=== PATIENT | male | born 1935 | race Hispanic/Latino ===

== ENCOUNTER → 2018-10-14 | Outpatient (CLI) | payer MEDICARE ==
[~2018-10-14] MED LIST: ALEN35TA31 PO; ASPI-555 PO; CHOL200012 PO; CLOP75TA14 PO; GABA-529 PO; INSU100I3 SQ; INSU3INS3 SQ; LOSA25TA41 PO
== END | disposition home or self-care (01) ==
LOC: RAH 09:12
PROVIDERS: ATTEND Internal Medicine Gastroenterology
DX: K21.9 Gastro-esophageal reflux disease without esophagitis (principal); R19.4 Change in bowel habit
CPT/HCPCS: 74270

== ENCOUNTER 2021-09-16 10:03 | Inpatient (IN) | payer MEDICARE ==
[~2021-09-16] VITALS: Ht 162.6 cm; Wt 82.7 kg
[~2021-09-16 10:03] MED LIST changes: -ALEN35TA31 PO; +ALEN35TA53 PO; -ASPI-555 PO; +ASPI-556 PO; +BISA5TAB12 PO; -INSU100I3 SQ; -INSU3INS3 SQ; -LOSA25TA41 PO; +LOSA50TA64 PO; +SIMV10TA97 PO
[2021-09-16 10:29] LABS: APPEARANCE,URINE Clear (CLEAR); BILIRUBIN,URINE Negative (NEGATIVE); COLOR,URINE Yellow (YELLOW); GLUCOSE, URINE (UA) Negative (NEGATIVE); KETONES,URINE Negative (NEGATIVE); LEUKOCYTE ESTERASE ,URINE Negative (NEGATIVE); NITRATE,URINE Negative (NEGATIVE); OCCULT BLOOD,URINE Negative (NEGATIVE); PROTEIN,URINE 300 mg/dL (NEGATIVE); UROBILINOGEN,URINE 0.2 mg/dL (0.2-1.0)
[2021-09-16 10:31] LABS: BASOPHILS % (AUTO) 0.6 % (0.0-5.0); EOSINOPHILS % (AUTO) 1.2 % (0.0-8.0); HEMATOCRIT 27.8 % (42-54); LYMPHOCYTES % (AUTO) 16.4 % (21.0-51.0); MEAN CORPUSCULAR HEMOGLOBIN 29.8 pg (27.0-33.0); MEAN CORPUSCULAR HGB CONC 30.9 g/dL (32.0-36.0); MEAN CORPUSCULAR VOLUME 96.2 fL (79-99); NEUTROPHILS % (AUTO) 75.3 % (40.0-77.0); PLATELET COUNT (AUTO) 177 K/uL (130-400); RED BLOOD CELL COUNT(AUTO) 2.89 MIL/uL (4.50-6.20); RED CELL DISTRIBUTION WIDTH 15.6 % (11.0-15.5); WHITE BLOOD COUNT (AUTO) 10.1 K/uL (4.8-10.8)
[2021-09-16 10:39] LABS: CREATININE 3.9 mg/dL (0.5-1.5)
[2021-09-16 10:47] LABS: BACTERIA,URINE Few /HPF (None Seen); RBC,URINE 0-1 /HPF (0-1); WBC,URINE 0-1 /HPF (0-1)
[2021-09-16 10:50] LABS: ALBUMIN 3.7 g/dL (3.5-5.0); BILIRUBIN,TOTAL 0.4 mg/dL (0.2-1.0); TOTAL PROTEIN, SERUM 7.2 g/dL (6.0-8.3)
[2021-09-16 11:00] LABS: B-TYPE NATRIURETIC PEPTIDE 976 pg/mL (0-100)
[2021-09-16] MEDS ORDERED: FUROSEMIDE 20MG VIAL IV SCH (11:30)
[2021-09-16] MEDS ORDERED: FOLI1TAB61 PO (12:58)
[2021-09-16] MEDS ORDERED: SODI650T PO (12:59)
[2021-09-16] MEDS ORDERED: METO-408 PO (13:00)
[2021-09-16] MEDS ORDERED: Vitamin B Complex/Vit C/Folic Acid PO SCH (13:00)
[2021-09-16] MEDS ORDERED: MECO10005 PO (13:02)
[2021-09-16] MEDS ORDERED: HYDR-4153 PO (13:04)
[2021-09-16 13:06] LABS: CREATININE,URINE RANDOM 64 mg/dL (30-135); SODIUM,URINE RANDOM 51 mmol/l (40-220)
[2021-09-16 13:12] LABS: HEMOGLOBIN A1C 5.7 % (4.0-6.0)
[2021-09-16 13:40] LABS: MAGNESIUM 1.9 mg/dL (1.80-2.40); PHOSPHORUS 3.3 mg/dL (2.5-4.9); URIC ACID 7.9 mg/dL (2.6-7.2)
[2021-09-16] MEDS ORDERED: SODIUM BICARBONATE 650 MG TAB PO SCH (14:00)
[2021-09-16] MEDS ORDERED: BUMETANIDE 1MG/4ML VIAL IVP SCH (16:00)
[2021-09-16] MEDS: FUROSEMIDE 40MG VIAL IV SCH (16:24)
[2021-09-16] MEDS: HEPARIN 5,000 UNIT VIAL SQ SCH (18:47)
[2021-09-16] MEDS: HYDRALAZINE 25MG TABLET PO SCH (20:28)
[2021-09-17 00:41] VITALS: BP 134/57
[2021-09-17] MEDS: FUROSEMIDE 40MG VIAL IV SCH (04:54)
[2021-09-17] MEDS: HEPARIN 5,000 UNIT VIAL SQ SCH ×3 (04:55→20:59)
[2021-09-17 05:38] VITALS: BP 109/53
[2021-09-17 06:48] LABS: BASOPHILS % (AUTO) 0.6 % (0.0-5.0); EOSINOPHILS % (AUTO) 2.4 % (0.0-8.0); HEMATOCRIT 25.3 % (42-54); LYMPHOCYTES % (AUTO) 15.2 % (21.0-51.0); MEAN CORPUSCULAR HEMOGLOBIN 28.4 pg (27.0-33.0); MEAN CORPUSCULAR VOLUME 94.4 fL (79-99); MONOCYTES % (AUTO) 7.8 % (3.0-13.0); NEUTROPHILS % (AUTO) 73.7 % (40.0-77.0); PLATELET COUNT (AUTO) 145 K/uL (130-400); RED BLOOD CELL COUNT(AUTO) 2.68 MIL/uL (4.50-6.20); RED CELL DISTRIBUTION WIDTH 15.5 % (11.0-15.5); WHITE BLOOD COUNT (AUTO) 7.2 K/uL (4.8-10.8)
[2021-09-17 07:06] LABS: ALBUMIN 3.1 g/dL (3.5-5.0); BILIRUBIN,TOTAL 0.3 mg/dL (0.2-1.0); CREATININE 4.1 mg/dL (0.5-1.5); MAGNESIUM 1.8 mg/dL (1.80-2.40); POTASSIUM 4.4 mmol/L (3.5-5.1); TOTAL PROTEIN, SERUM 6.2 g/dL (6.0-8.3)
[2021-09-17 07:10] VITALS: BP 135/69
[2021-09-17] MEDS ORDERED: Vitamin B Complex/Vit C/Folic Acid PO SCH (09:00)
[2021-09-17] MEDS: CHOLECALCIFEROL 2000 UNIT PO SCH (09:00)
[2021-09-17 11:10] VITALS: BP 132/62
[2021-09-17 11:53] LABS: % IRON SATURATION 20.1 % (30-44)
[2021-09-17] MEDS: GABAPENTIN 100 MG CAPSULE PO SCH (12:22)
[2021-09-17] MEDS: Vitamin B Complex/Vit C/Folic Acid PO SCH (12:23)
[2021-09-17] MEDS: SODIUM BICARBONATE 650 MG TAB PO SCH (12:23)
[2021-09-17] MEDS: METOPROLOL SUCCINATE 50 MG TAB.SR.24H PO SCH (12:24)
[2021-09-17] MEDS: CYANOCOBALAMIN (VITAMIN B-12) 1,000 MCG TABLET PO SCH (12:24)
[2021-09-17] MEDS: HYDRALAZINE 25MG TABLET PO SCH ×2 (12:26→20:59)
[2021-09-17 15:10] VITALS: BP 155/69
[2021-09-17 16:04] LABS: HEMATOCRIT 26.9 % (42-54)
[2021-09-17 20:00] VITALS: BP 137/58
[2021-09-17] MEDS: EPOETIN ALFA-EPBX (NON-ESRD) 10,000 UNIT/ML VIAL SQ SCH (20:59)
[2021-09-18] VITALS: BP 111/52
[2021-09-18 04:00] VITALS: BP 141/67
[2021-09-18 04:52] LABS: HEMATOCRIT 23.9 % (42-54); MEAN CORPUSCULAR HEMOGLOBIN 28.3 pg (27.0-33.0); MEAN CORPUSCULAR HGB CONC 30.1 g/dL (32.0-36.0); MEAN CORPUSCULAR VOLUME 94.1 fL (79-99); RED BLOOD CELL COUNT(AUTO) 2.54 MIL/uL (4.50-6.20); RED CELL DISTRIBUTION WIDTH 15.3 % (11.0-15.5)
[2021-09-18 04:59] LABS: CREATININE 4.4 mg/dL (0.5-1.5)
[2021-09-18] MEDS: FUROSEMIDE 40MG VIAL IV SCH ×2 (05:00→17:34)
[2021-09-18 05:05] LABS: INR 1.15 (0.85-1.15); PROTHROMBIN TIME 12.4 SEC (9.6-11.6)
[2021-09-18 05:06] LABS: PARTIAL THROMBOPLASTIN TIME 27.9 SEC (26.3-35.5)
[2021-09-18 07:20] VITALS: BP 151/71
[2021-09-18] MEDS ORDERED: COMPOUND IV MISC 1 EACH IVSOLN MISC PRN (08:30)
[2021-09-18] MEDS: CHOLECALCIFEROL 2000 UNIT PO SCH (09:00)
[2021-09-18] MEDS: Vitamin B Complex/Vit C/Folic Acid PO SCH (10:50)
[2021-09-18] MEDS: GABAPENTIN 100 MG CAPSULE PO SCH (10:50)
[2021-09-18] MEDS: SODIUM BICARBONATE 650 MG TAB PO SCH (10:51)
[2021-09-18] MEDS: CYANOCOBALAMIN (VITAMIN B-12) 1,000 MCG TABLET PO SCH (10:51)
[2021-09-18] MEDS: HYDRALAZINE 25MG TABLET PO SCH ×2 (10:51→22:19)
[2021-09-18] MEDS: METOPROLOL SUCCINATE 50 MG TAB.SR.24H PO SCH (10:51)
[2021-09-18 11:30] VITALS: BP 154/51
[2021-09-18 15:15] VITALS: BP 150/64
[2021-09-18] MEDS: HEPARIN 5,000 UNIT VIAL SQ SCH (18:16)
[2021-09-18] MEDS: IRON SUCROSE COMPLEX 300 MG in 0.9%NACL 50ML 50 ML IV SCH (18:17)
[2021-09-18 19:44] VITALS: BP 136/68
[2021-09-19] VITALS (7 sets, daily range): BP systolic 95–171; BP diastolic 43–72
[2021-09-19 04:40] LABS: HEMATOCRIT 23.2 % (42-54); MEAN CORPUSCULAR HEMOGLOBIN 28.5 pg (27.0-33.0); MEAN CORPUSCULAR VOLUME 91.7 fL (79-99); RED BLOOD CELL COUNT(AUTO) 2.53 MIL/uL (4.50-6.20); RED CELL DISTRIBUTION WIDTH 15.3 % (11.0-15.5); WHITE BLOOD COUNT (AUTO) 7.5 K/uL (4.8-10.8)
[2021-09-19 04:41] LABS: ALBUMIN 2.8 g/dL (3.5-5.0); CREATININE 4.8 mg/dL (0.5-1.5); POTASSIUM 3.7 mmol/L (3.5-5.1)
[2021-09-19] MEDS: FUROSEMIDE 40MG VIAL IV SCH (06:02)
[2021-09-19] MEDS: HEPARIN 5,000 UNIT VIAL SQ SCH (06:04)
[2021-09-19] MEDS: CHOLECALCIFEROL 2000 UNIT PO SCH (09:00)
[2021-09-19] MEDS: CYANOCOBALAMIN (VITAMIN B-12) 1,000 MCG TABLET PO SCH (11:14)
[2021-09-19] MEDS: Vitamin B Complex/Vit C/Folic Acid PO SCH (11:14)
[2021-09-19] MEDS: HYDRALAZINE 25MG TABLET PO SCH ×2 (11:14→20:06)
[2021-09-19] MEDS: SODIUM BICARBONATE 650 MG TAB PO SCH (11:14)
[2021-09-19] MEDS: GABAPENTIN 100 MG CAPSULE PO SCH (11:15)
[2021-09-19] MEDS: APIXABAN 2.5 MG TABLET PO SCH ×2 (11:15→20:06)
[2021-09-19] MEDS: IRON SUCROSE COMPLEX 300 MG in 0.9%NACL 50ML 50 ML IV SCH (11:16)
[2021-09-19] MEDS: FUROSEMIDE 40 MG TABLET PO SCH (18:15)
[2021-09-19] MEDS: EPOETIN ALFA-EPBX (NON-ESRD) 10,000 UNIT/ML VIAL SQ SCH (20:06)
[2021-09-20] VITALS (7 sets, daily range): BP systolic 100–172; BP diastolic 46–68
[2021-09-20 04:30] LABS: HEMATOCRIT 24.2 % (42-54); MEAN CORPUSCULAR HEMOGLOBIN 28.7 pg (27.0-33.0); MEAN CORPUSCULAR HGB CONC 30.6 g/dL (32.0-36.0); MEAN CORPUSCULAR VOLUME 93.8 fL (79-99); RED BLOOD CELL COUNT(AUTO) 2.58 MIL/uL (4.50-6.20); RED CELL DISTRIBUTION WIDTH 15.5 % (11.0-15.5); WHITE BLOOD COUNT (AUTO) 8.2 K/uL (4.8-10.8)
[2021-09-20 05:08] LABS: CREATININE 5.5 mg/dL (0.5-1.5)
[2021-09-20] MEDS: FUROSEMIDE 40 MG TABLET PO SCH (05:30)
[2021-09-20] MEDS: CHOLECALCIFEROL 2000 UNIT PO SCH (09:00)
[2021-09-20] MEDS: GABAPENTIN 100 MG CAPSULE PO SCH (10:42)
[2021-09-20] MEDS: APIXABAN 2.5 MG TABLET PO SCH ×2 (10:42→21:06)
[2021-09-20] MEDS: Vitamin B Complex/Vit C/Folic Acid PO SCH (10:42)
[2021-09-20] MEDS: IRON SUCROSE COMPLEX 300 MG in 0.9%NACL 50ML 50 ML IV SCH (10:42)
[2021-09-20] MEDS: CYANOCOBALAMIN (VITAMIN B-12) 1,000 MCG TABLET PO SCH (10:42)
[2021-09-20] MEDS: SODIUM BICARBONATE 650 MG TAB PO SCH (10:42)
[2021-09-20] MEDS: HYDRALAZINE 25MG TABLET PO SCH ×2 (10:43→21:06)
[2021-09-21 03:50] VITALS: BP 100/47
[2021-09-21 04:40] LABS: HEMATOCRIT 22.7 % (42-54); MEAN CORPUSCULAR HEMOGLOBIN 28.7 pg (27.0-33.0); MEAN CORPUSCULAR HGB CONC 30.8 g/dL (32.0-36.0); RED BLOOD CELL COUNT(AUTO) 2.44 MIL/uL (4.50-6.20); RED CELL DISTRIBUTION WIDTH 15.8 % (11.0-15.5); WHITE BLOOD COUNT (AUTO) 8.3 K/uL (4.8-10.8)
[2021-09-21 04:54] LABS: POTASSIUM 3.4 mmol/L (3.5-5.1)
[2021-09-21 07:30] VITALS: BP 126/52
[2021-09-21] MEDS: CHOLECALCIFEROL 2000 UNIT PO SCH (09:00)
[2021-09-21 09:32] LABS: HEMATOCRIT 24.2 % (42-54)
[2021-09-21] MEDS: CYANOCOBALAMIN (VITAMIN B-12) 1,000 MCG TABLET PO SCH (10:54)
[2021-09-21] MEDS: GABAPENTIN 100 MG CAPSULE PO SCH (10:54)
[2021-09-21] MEDS: Vitamin B Complex/Vit C/Folic Acid PO SCH (10:54)
[2021-09-21] MEDS: SODIUM BICARBONATE 650 MG TAB PO SCH (10:54)
[2021-09-21] MEDS: HYDRALAZINE 25MG TABLET PO SCH ×2 (10:55→20:37)
[2021-09-21] MEDS: APIXABAN 2.5 MG TABLET PO SCH ×2 (10:55→20:31)
[2021-09-21] MEDS: IRON SUCROSE COMPLEX 300 MG in 0.9%NACL 50ML 50 ML IV SCH (10:56)
[2021-09-21 11:15] VITALS: BP 145/56
[2021-09-21 15:25] VITALS: BP 142/61
[2021-09-21 20:00] VITALS: BP 141/55
[2021-09-22] VITALS: BP 100/44
[2021-09-22 04:00] VITALS: BP 96/42
[2021-09-22 06:59] LABS: BASOPHILS % (AUTO) 0.5 % (0.0-5.0); EOSINOPHILS % (AUTO) 1.7 % (0.0-8.0); HEMATOCRIT 25.1 % (42-54); LYMPHOCYTES % (AUTO) 18.8 % (21.0-51.0); MEAN CORPUSCULAR HGB CONC 29.9 g/dL (32.0-36.0); MEAN CORPUSCULAR VOLUME 96.9 fL (79-99); MONOCYTES % (AUTO) 10.1 % (3.0-13.0); PLATELET COUNT (AUTO) 156 K/uL (130-400); RED BLOOD CELL COUNT(AUTO) 2.59 MIL/uL (4.50-6.20); RED CELL DISTRIBUTION WIDTH 15.9 % (11.0-15.5); WHITE BLOOD COUNT (AUTO) 7.6 K/uL (4.8-10.8)
[2021-09-22 07:18] LABS: CREATININE 5.2 mg/dL (0.5-1.5); POTASSIUM 3.9 mmol/L (3.5-5.1)
[2021-09-22 08:00] VITALS: BP 112/44
[2021-09-22] MEDS: CHOLECALCIFEROL 2000 UNIT PO SCH (09:00)
[2021-09-22] MEDS: Vitamin B Complex/Vit C/Folic Acid PO SCH (10:03)
[2021-09-22] MEDS: GABAPENTIN 100 MG CAPSULE PO SCH (10:03)
[2021-09-22] MEDS: SODIUM BICARBONATE 650 MG TAB PO SCH (10:03)
[2021-09-22] MEDS: CYANOCOBALAMIN (VITAMIN B-12) 1,000 MCG TABLET PO SCH (10:03)
[2021-09-22] MEDS: HYDRALAZINE 25MG TABLET PO SCH (10:04)
[2021-09-22 11:59] VITALS: BP 117/63
== END 2021-09-22 15:00 | disposition home or self-care (01) | DRG 291 ==
LOC: EDH 10:03 → EDHIP 12:01 → UNDOADMOB 12:01 → OBSVTOIN 12:01 → INTOOBSV 12:01 → EDHIP 12:45 → OBSVTOIN 12:45 → 4DH 09-17 00:20
PROVIDERS: ADMIT Internal Medicine; ATTEND Internal Medicine
DX: I13.0 Hypertensive heart and chronic kidney disease with heart failure and stage 1 through stage 4 chronic kidney disease, or unspecified chronic kidney disease (principal); J96.01 Acute respiratory failure with hypoxia; E43 Unspecified severe protein-calorie malnutrition; I50.33 Acute on chronic diastolic (congestive) heart failure; N17.9 Acute kidney failure, unspecified; I45.2 Bifascicular block; N18.4 Chronic kidney disease, stage 4 (severe); E11.22 Type 2 diabetes mellitus with diabetic chronic kidney disease; D50.9 Iron deficiency anemia, unspecified; R00.1 Bradycardia, unspecified; D63.8 Anemia in other chronic diseases classified elsewhere; E78.5 Hyperlipidemia, unspecified; E87.6 Hypokalemia; H54.8 Legal blindness, as defined in USA; I44.0 Atrioventricular block, first degree; I48.91 Unspecified atrial fibrillation; Z20.822 Contact with and (suspected) exposure to COVID-19; R79.89 Other specified abnormal findings of blood chemistry; Z83.3 Family history of diabetes mellitus; Z82.3 Family history of stroke; Z82.49 Family history of ischemic heart disease and other diseases of the circulatory system; Z82.0 Family history of epilepsy and other diseases of the nervous system; Z90.49 Acquired absence of other specified parts of digestive tract; Z79.899 Other long term (current) drug therapy; Z79.82 Long term (current) use of aspirin; Z68.31 Body mass index [BMI] 31.0-31.9, adult
CPT/HCPCS: 36415; 71045; 72170; 76770; 80048; 80053; 81001; 82040; 82270; 82550; 82570; 82728; 82948; 83036; 83540; 83550; 83735; 83874; 83880; 84100; 84145; 84300; 84443; 84484; 84540; 84550; 85014; 85018; 85025; 85027; 85610; 85651; 85730; 86140; 86850; 86900; 86901; 87635; 93005; 93306; 93356; 93970; 97039; 99291; C9803; G0378; J1644; J1756; J1940

== ENCOUNTER 2021-11-04 10:46 | Inpatient (IN) | payer MEDICARE ==
[~2021-11-04] VITALS: Ht 162.6 cm; Wt 68.9 kg
[~2021-11-04 10:46] MED LIST changes: -ALEN35TA53 PO; -ASPI-556 PO; -BISA5TAB12 PO; -CLOP75TA14 PO; +FOLI1TAB61 PO; -LOSA50TA64 PO; +MECO10005 PO; -SIMV10TA97 PO
[2021-11-04 11:33] LABS: BASOPHILS % (AUTO) 0.2 % (0.0-5.0); EOSINOPHILS % (AUTO) 0.2 % (0.0-8.0); HEMATOCRIT 32.8 % (42-54); LYMPHOCYTES % (AUTO) 7.3 % (21.0-51.0); MEAN CORPUSCULAR HEMOGLOBIN 30.5 pg (27.0-33.0); MEAN CORPUSCULAR HGB CONC 34.1 g/dL (32.0-36.0); MEAN CORPUSCULAR VOLUME 89.4 fL (79-99); MONOCYTES % (AUTO) 2.4 % (3.0-13.0); NEUTROPHILS % (AUTO) 89.4 % (40.0-77.0); PLATELET COUNT (AUTO) 183 K/uL (130-400); RED BLOOD CELL COUNT(AUTO) 3.67 MIL/uL (4.50-6.20); RED CELL DISTRIBUTION WIDTH 14.7 % (11.0-15.5); WHITE BLOOD COUNT (AUTO) 11.2 K/uL (4.8-10.8)
[2021-11-04 11:46] LABS: CREATININE 7.2 mg/dL (0.5-1.5); POTASSIUM 3.9 mmol/L (3.5-5.1)
[2021-11-04 11:50] LABS: ALBUMIN 3.2 g/dL (3.5-5.0); BILIRUBIN,TOTAL 0.3 mg/dL (0.2-1.0); PHOSPHORUS 8.5 mg/dL (2.5-4.9); TOTAL PROTEIN, SERUM 7.1 g/dL (6.0-8.3)
[2021-11-04 12:07] LABS: INR 1.12 (0.85-1.15); PROTHROMBIN TIME 11.5 SEC (9.6-11.6)
[2021-11-04] MEDS ORDERED: PANTOPRAZOLE 40 MG/VIAL IVP ONE (12:30)
[2021-11-04] MEDS: PANTOPRAZOLE 40 MG/VIAL IVP SCH (12:30)
[2021-11-04 12:36] LABS: ERYTHROCYTE SEDIMENTATION RATE 60 MM/HR (0-20)
[2021-11-04 12:48] LABS: HEMOGLOBIN A1C 5.8 % (4.0-6.0)
[2021-11-04 15:54] LABS: APPEARANCE,URINE Clear (CLEAR); BILIRUBIN,URINE Negative (NEGATIVE); COLOR,URINE Yellow (YELLOW); GLUCOSE, URINE (UA) TRACE mg/dL (NEGATIVE); KETONES,URINE Negative (NEGATIVE); LEUKOCYTE ESTERASE ,URINE Negative (NEGATIVE); NITRATE,URINE Negative (NEGATIVE); OCCULT BLOOD,URINE Small (NEGATIVE); PROTEIN,URINE 300 mg/dL (NEGATIVE); UROBILINOGEN,URINE 0.2 mg/dL (0.2-1.0)
[2021-11-04 16:04] LABS: WBC,URINE 0-1 /HPF (0-1)
[2021-11-04 16:05] LABS: BACTERIA,URINE Few /HPF (None Seen); COARSE GRANULAR CASTS,URINE 0-2 /LPF (None Seen); SQUAMOUS EPITHELIAL CELL,UR Rare /HPF (0-2)
[2021-11-04 16:10] VITALS: BP 160/80
[2021-11-04] MEDS ORDERED: APIX2.5T PO (16:48)
[2021-11-04] MEDS ORDERED: SODI1POW18 PO (16:48)
[2021-11-04] MEDS ORDERED: FURO20TA4 PO (16:48)
[2021-11-04] MEDS ORDERED: LINA145C PO (16:48)
[2021-11-04] MEDS ORDERED: FERR-82 PO (16:48)
[2021-11-04] MEDS ORDERED: FOLI0.8T2 PO (16:48)
[2021-11-04] MEDS ORDERED: MECO10005 PO (16:48)
[2021-11-04] MEDS ORDERED: METO-391 PO (16:48)
[2021-11-04] MEDS ORDERED: CHOL200012 PO (16:48)
[2021-11-04 18:55] LABS: HEMATOCRIT 31.5 % (42-54)
[2021-11-04 19:06] LABS: ALBUMIN 3.2 g/dL (3.5-5.0)
[2021-11-04 19:30] LABS: % IRON SATURATION 70.3 % (30-44)
[2021-11-04 20:00] VITALS: BP 178/78
[2021-11-05] VITALS (25 sets, daily range): BP systolic 118–186; BP diastolic 57–89
[2021-11-05 04:12] LABS: ALBUMIN 2.9 g/dL (3.5-5.0); BILIRUBIN,TOTAL 0.3 mg/dL (0.2-1.0); CREATININE 6.8 mg/dL (0.5-1.5); PHOSPHORUS 8.3 mg/dL (2.5-4.9); TOTAL PROTEIN, SERUM 6.4 g/dL (6.0-8.3)
[2021-11-05 06:51] LABS: HEPATITIS B SURFACE ANTIGEN Non-Reactive (Negative)
[2021-11-05] MEDS ORDERED: FERROUS SULFATE 325 MG TABLET.DR PO SCH (09:00)
[2021-11-05] MEDS: CYANOCOBALAMIN (VITAMIN B-12) 1,000 MCG TABLET PO SCH (09:00)
[2021-11-05] MEDS: **HM**(Linaclotide (Linzess) 145 MCG) PO SCH (09:00)
[2021-11-05] MEDS ORDERED: FUROSEMIDE 20 MG TABLET PO SCH (09:00)
[2021-11-05] MEDS: Vitamin B Complex/Vit C/Folic Acid PO SCH (09:00)
[2021-11-05] MEDS ORDERED: SODIUM BICARBONATE 650 MG TAB PO SCH (09:00)
[2021-11-05] MEDS: CHOLECALCIFEROL 50 MCG PO SCH (09:00)
[2021-11-05] MEDS: PANTOPRAZOLE 40 MG/VIAL IVP SCH (09:27)
[2021-11-05] MEDS ORDERED: HEPARIN 1,000 UNIT VIAL ONE (13:35)
[2021-11-05] MEDS ORDERED: LIDOCAINE HCL 1% MDV 50ML VIAL ONE (13:36)
[2021-11-05] MEDS ORDERED: EPOETIN ALFA-EPBX (ESRD) 10,000 UNIT/ML VIAL SQ SCH (21:00)
[2021-11-05] MEDS: HEPARIN 5,000 UNIT VIAL IJ PRN (21:43)
[2021-11-05] MEDS ORDERED: KCL 20 MEQ ERTAB PO ONE ×2 (22:24→22:30)
[2021-11-06] VITALS (17 sets, daily range): BP systolic 97–151; BP diastolic 54–76
[2021-11-06 06:42] LABS: BASOPHILS % (AUTO) 0.2 % (0.0-5.0); EOSINOPHILS % (AUTO) 0.5 % (0.0-8.0); HEMATOCRIT 30.3 % (42-54); LYMPHOCYTES % (AUTO) 11.9 % (21.0-51.0); MEAN CORPUSCULAR HEMOGLOBIN 30.8 pg (27.0-33.0); MEAN CORPUSCULAR HGB CONC 35.6 g/dL (32.0-36.0); MEAN CORPUSCULAR VOLUME 86.3 fL (79-99); NEUTROPHILS % (AUTO) 81.9 % (40.0-77.0); PLATELET COUNT (AUTO) 157 K/uL (130-400); RED BLOOD CELL COUNT(AUTO) 3.51 MIL/uL (4.50-6.20); RED CELL DISTRIBUTION WIDTH 14.6 % (11.0-15.5); WHITE BLOOD COUNT (AUTO) 8.9 K/uL (4.8-10.8)
[2021-11-06 06:55] LABS: ALBUMIN 2.9 g/dL (3.5-5.0); BILIRUBIN,TOTAL 0.7 mg/dL (0.2-1.0); CREATININE 5.1 mg/dL (0.5-1.5); MAGNESIUM 1.9 mg/dL (1.80-2.40); POTASSIUM 3.6 mmol/L (3.5-5.1); TOTAL PROTEIN, SERUM 6.7 g/dL (6.0-8.3)
[2021-11-06] MEDS: CYANOCOBALAMIN (VITAMIN B-12) 1,000 MCG TABLET PO SCH (08:59)
[2021-11-06] MEDS: Vitamin B Complex/Vit C/Folic Acid PO SCH (08:59)
[2021-11-06] MEDS: PANTOPRAZOLE 40 MG/VIAL IVP SCH (08:59)
[2021-11-06] MEDS: **HM**(Linaclotide (Linzess) 145 MCG) PO SCH (09:01)
[2021-11-06] MEDS: CHOLECALCIFEROL 50 MCG PO SCH (09:01)
[2021-11-06] MEDS: HEPARIN 5,000 UNIT VIAL IJ PRN (13:42)
[2021-11-06] MEDS ORDERED: MIDODRINE HCL 5 MG TABLET PO PRN (19:00)
[2021-11-06] MEDS ORDERED: MIDODRINE HCL 5 MG TABLET PO SCH (19:00)
[2021-11-06] MEDS: APIXABAN 2.5 MG TABLET PO SCH (20:16)
[2021-11-07] VITALS (20 sets, daily range): BP systolic 106–155; BP diastolic 61–80
[2021-11-07] MEDS: CHOLECALCIFEROL 50 MCG PO SCH (09:00)
[2021-11-07] MEDS: **HM**(Linaclotide (Linzess) 145 MCG) PO SCH (09:00)
[2021-11-07] MEDS: CYANOCOBALAMIN (VITAMIN B-12) 1,000 MCG TABLET PO SCH (09:18)
[2021-11-07] MEDS: Vitamin B Complex/Vit C/Folic Acid PO SCH (09:18)
[2021-11-07] MEDS: APIXABAN 2.5 MG TABLET PO SCH (09:18)
[2021-11-07] MEDS: PANTOPRAZOLE 40 MG/VIAL IVP SCH (09:18)
[2021-11-07 14:45] LABS: CREATININE 1.8 mg/dL (0.5-1.5); POTASSIUM 3.2 mmol/L (3.5-5.1)
[2021-11-07 14:49] LABS: PHOSPHORUS 1.7 mg/dL (2.5-4.9)
[2021-11-07] MEDS: HEPARIN 5,000 UNIT VIAL IJ PRN (14:54)
== END 2021-11-07 18:15 | disposition home or self-care (01) | DRG 673 ==
LOC: EDH 10:46 → EDHIP 12:23 → 4CH 13:46
PROVIDERS: ADMIT Internal Medicine; ATTEND Internal Medicine
PROC: 0JH63XZ Insertion of Tunneled Vascular Access Device into Chest Subcutaneous Tissue and Fascia, Percutaneous Approach (ICD-10-PCS; principal; 2021-11-05)
PROC: 02H633Z Insertion of Infusion Device into Right Atrium, Percutaneous Approach (ICD-10-PCS; 2021-11-05)
PROC: B5181ZA Fluoroscopy of Superior Vena Cava using Low Osmolar Contrast, Guidance (ICD-10-PCS; 2021-11-05)
PROC: B548ZZA Ultrasonography of Superior Vena Cava, Guidance (ICD-10-PCS; 2021-11-05)
PROC: 5A1D70Z Performance of Urinary Filtration, Intermittent, Less than 6 Hours Per Day (ICD-10-PCS; 2021-11-05)
PROC: 5A1D70Z Performance of Urinary Filtration, Intermittent, Less than 6 Hours Per Day (ICD-10-PCS; 2021-11-06)
PROC: 5A1D70Z Performance of Urinary Filtration, Intermittent, Less than 6 Hours Per Day (ICD-10-PCS; 2021-11-07)
DX: I12.0 Hypertensive chronic kidney disease with stage 5 chronic kidney disease or end stage renal disease (principal); N18.6 End stage renal disease; I48.91 Unspecified atrial fibrillation; E78.5 Hyperlipidemia, unspecified; D64.9 Anemia, unspecified; Z20.822 Contact with and (suspected) exposure to COVID-19; Z83.3 Family history of diabetes mellitus; Z82.5 Family history of asthma and other chronic lower respiratory diseases; E11.319 Type 2 diabetes mellitus with unspecified diabetic retinopathy without macular edema; E11.51 Type 2 diabetes mellitus with diabetic peripheral angiopathy without gangrene; E83.39 Other disorders of phosphorus metabolism; E87.70 Fluid overload, unspecified; Z96.642 Presence of left artificial hip joint; E87.6 Hypokalemia; F03.90 Unspecified dementia, unspecified severity, without behavioral disturbance, psychotic disturbance, mood disturbance, and anxiety; I95.1 Orthostatic hypotension; Z82.3 Family history of stroke; Z82.49 Family history of ischemic heart disease and other diseases of the circulatory system; H54.8 Legal blindness, as defined in USA; Z79.01 Long term (current) use of anticoagulants; E11.22 Type 2 diabetes mellitus with diabetic chronic kidney disease; Z99.2 Dependence on renal dialysis; Z66 Do not resuscitate
CPT/HCPCS: 36415; 36558; 71045; 77001; 80048; 80053; 80061; 81001; 82040; 82565; 82728; 82948; 83036; 83540; 83550; 83735; 84100; 84132; 84145; 84443; 84520; 85014; 85018; 85025; 85610; 85651; 85730; 86701; 86704; 86706; 87340; 87390; 87635; 90935; 92610; 93005; C1750; C9113; G0378; J1644; J3490

== ENCOUNTER 2021-11-08 09:59 | Emergency (ER) | payer MEDICARE ==
[~2021-11-08] VITALS: Ht 162.6 cm; Wt 72.1 kg
[~2021-11-08 09:59] MED LIST changes: +APIX2.5T PO; +FERR-82 PO; +FOLI0.8T2 PO; +FURO20TA4 PO; +LINA145C PO; +METO-391 PO; +SODI1POW18 PO
[2021-11-08] MEDS ORDERED: 0.9% NACL 500ML IV.SOLN 500 ML IV ONE (10:47)
[2021-11-08 11:07] LABS: BASOPHILS % (AUTO) 0.2 % (0.0-5.0); EOSINOPHILS % (AUTO) 0.6 % (0.0-8.0); LYMPHOCYTES % (AUTO) 10.4 % (21.0-51.0); MEAN CORPUSCULAR HEMOGLOBIN 29.9 pg (27.0-33.0); MEAN CORPUSCULAR HGB CONC 33.7 g/dL (32.0-36.0); MEAN CORPUSCULAR VOLUME 88.8 fL (79-99); MONOCYTES % (AUTO) 7.6 % (3.0-13.0); NEUTROPHILS % (AUTO) 80.6 % (40.0-77.0); PLATELET COUNT (AUTO) 115 K/uL (130-400); RED BLOOD CELL COUNT(AUTO) 3.94 MIL/uL (4.50-6.20); RED CELL DISTRIBUTION WIDTH 14.3 % (11.0-15.5); WHITE BLOOD COUNT (AUTO) 10.2 K/uL (4.8-10.8)
[2021-11-08 11:16] LABS: CREATININE 4.8 mg/dL (0.5-1.5); POTASSIUM 3.4 mmol/L (3.5-5.1)
[2021-11-08 11:21] LABS: ALBUMIN 3.1 g/dL (3.5-5.0); BILIRUBIN,TOTAL 0.5 mg/dL (0.2-1.0); TOTAL PROTEIN, SERUM 6.9 g/dL (6.0-8.3)
[2021-11-08] MEDS ORDERED: 0.9% NACL 500ML IV.SOLN 500 ML IV SCH (13:30)
[2021-11-08 15:06] VITALS: BP 141/72
== END 2021-11-08 15:08 | disposition home or self-care (01) ==
LOC: EDH 09:59
DX: R42 Dizziness and giddiness (principal); E86.9 Volume depletion, unspecified; I12.0 Hypertensive chronic kidney disease with stage 5 chronic kidney disease or end stage renal disease; E11.22 Type 2 diabetes mellitus with diabetic chronic kidney disease; N18.6 End stage renal disease; D63.1 Anemia in chronic kidney disease; I48.91 Unspecified atrial fibrillation; Z99.2 Dependence on renal dialysis; Z90.89 Acquired absence of other organs; Z98.890 Other specified postprocedural states; Z79.899 Other long term (current) drug therapy; Z79.01 Long term (current) use of anticoagulants
CPT/HCPCS: 36415; 80053; 84484 ×2; 85025; 93005; 99284; J7040 ×2

== ENCOUNTER 2022-06-23 11:46 | Day surgery (SDC) | payer MEDICARE ==
[2022-06-18 09:05] LABS: CREATININE 4.8 mg/dL (0.5-1.5)
[2022-06-22 15:30] VITALS: BP 105/54
[~2022-06-23] VITALS: Ht 162.6 cm; Wt 76.2 kg
[~2022-06-23 11:46] MED LIST changes: -FERR-82 PO; -FOLI0.8T2 PO; -FOLI1TAB61 PO; -FURO20TA4 PO; -GABA-529 PO; -LINA145C PO; +POTASSIUM CHLORIDE PO; -SODI1POW18 PO
[2022-06-23 11:54] VITALS: BP 98/50
[2022-06-23 12:05] LABS: HEMATOCRIT 33.3 % (42-54); MEAN CORPUSCULAR HEMOGLOBIN 33.6 pg (27.0-33.0); MEAN CORPUSCULAR HGB CONC 32.4 g/dL (32.0-36.0); MEAN CORPUSCULAR VOLUME 103.7 fL (79-99); RED BLOOD CELL COUNT(AUTO) 3.21 MIL/uL (4.50-6.20); RED CELL DISTRIBUTION WIDTH 16.6 % (11.0-15.5)
[2022-06-23 12:14] LABS: CREATININE 5.4 mg/dL (0.5-1.5); POTASSIUM 4.6 mmol/L (3.5-5.1)
[2022-06-23] MEDS ORDERED: 0.9%NACL 1000ML 1,000 ML IV ONE (12:16)
[2022-06-23 12:18] LABS: INR 1.03 (0.85-1.15); PROTHROMBIN TIME 11.2 SEC (9.6-11.6)
[2022-06-23 12:19] LABS: PARTIAL THROMBOPLASTIN TIME 26.5 SEC (26.3-35.5)
[2022-06-23] MEDS ORDERED: LIDOCAINE HCL 1% 20 ML VIAL ONE (13:03)
[2022-06-23] MEDS ORDERED: IODIXANOL 320 MG/ML 100 ML VIAL ONE (13:03)
[2022-06-23] MEDS ORDERED: FENTANYL CITRATE PF 50 MCG/1 ML 2ML VIAL ONE (13:04)
[2022-06-23] MEDS ORDERED: MIDAZOLAM HCL 1 MG/ML 2ML VIAL ONE (13:04)
[2022-06-23 14:30] VITALS: BP 122/48
[2022-06-23 14:45] VITALS: BP 124/54
[2022-06-23 15:00] VITALS: BP 131/44
[2022-06-23 15:10] VITALS: BP 128/54
== END 2022-06-23 15:10 | disposition home or self-care (01) ==
LOC: DAH 11:46
PROVIDERS: ATTEND Student in an Organized Health Care Education/Training Program
DX: T82.590A Other mechanical complication of surgically created arteriovenous fistula, initial encounter (principal); E11.22 Type 2 diabetes mellitus with diabetic chronic kidney disease; I12.0 Hypertensive chronic kidney disease with stage 5 chronic kidney disease or end stage renal disease; N18.6 End stage renal disease; Z99.2 Dependence on renal dialysis; Z98.890 Other specified postprocedural states; Z90.49 Acquired absence of other specified parts of digestive tract; Z79.899 Other long term (current) drug therapy; Z79.4 Long term (current) use of insulin; Y83.8 Other surgical procedures as the cause of abnormal reaction of the patient, or of later complication, without mention of misadventure at the time of the procedure
CPT/HCPCS: 84520; 82565; 36415 ×2; 36901; 80048; 85027; 85610; 85730; 82948 ×2; C1894 ×2; A4663; J7030; J1644; Q9967; A4215; A4222; A4221; J2250; J3010

== ENCOUNTER 2022-12-24 05:52 | Day surgery (SDC) | payer MEDICARE ==
[2022-12-23 15:46] LABS: BASOPHILS % (AUTO) 0.6 % (0.0-5.0); EOSINOPHILS % (AUTO) 1.9 % (0.0-8.0); HEMATOCRIT 28.7 % (42-54); LYMPHOCYTES % (AUTO) 19.4 % (21.0-51.0); MEAN CORPUSCULAR HEMOGLOBIN 32.9 pg (27.0-33.0); MEAN CORPUSCULAR HGB CONC 32.1 g/dL (32.0-36.0); MEAN CORPUSCULAR VOLUME 102.5 fL (79-99); MONOCYTES % (AUTO) 8.7 % (3.0-13.0); NEUTROPHILS % (AUTO) 68.6 % (40.0-77.0); PLATELET COUNT (AUTO) 228 K/uL (130-400); RED CELL DISTRIBUTION WIDTH 14.9 % (11.0-15.5); WHITE BLOOD COUNT (AUTO) 7.9 K/uL (4.8-10.8)
[2022-12-23 15:53] LABS: CREATININE 2.6 mg/dL (0.5-1.5); POTASSIUM 3.7 mmol/L (3.5-5.1)
[2022-12-23 16:14] LABS: B-TYPE NATRIURETIC PEPTIDE 649 pg/mL (0-100)
[2022-12-23 16:20] LABS: INR 1.09 (0.85-1.15); PROTHROMBIN TIME 11.8 SEC (9.6-11.6)
[2022-12-23 16:22] LABS: PARTIAL THROMBOPLASTIN TIME 27.3 SEC (26.3-35.5)
[2022-12-23 16:48] VITALS: BP 134/61
[2022-12-24] VITALS (11 sets, daily range): BP systolic 98–148; BP diastolic 44–61
[~2022-12-24] VITALS: Ht 162.6 cm; Wt 79.4 kg
[~2022-12-24 05:52] MED LIST changes: +ATOR40TA69 PO; +CALC667T6 PO; -CHOL200012 PO; +FAMO20TA8 PO; +FOLI1TAB85 PO; +INSLAN SQ; -METO-391 PO; +METO-408 PO; +MULT-1367 PO; +NITR0.4T50 SL; -POTASSIUM CHLORIDE PO
[2022-12-24] MEDS ORDERED: 0.9%NACL 1000ML 1,000 ML IV ONE (06:13)
[2022-12-24] MEDS ORDERED: FENTANYL CITRATE PF 50 MCG/1 ML 2ML VIAL ONE (07:19)
[2022-12-24] MEDS ORDERED: LIDOCAINE HCL 400MG/20ML VIAL ONE (07:19)
[2022-12-24] MEDS ORDERED: MIDAZOLAM HCL 1 MG/ML 2ML VIAL ONE ×2 (07:19→09:43)
[2022-12-24] MEDS ORDERED: IODIXANOL 320 MG/ML 100 ML VIAL ONE (07:19)
[2022-12-24] MEDS ORDERED: HEPARIN 10,000 UNIT/10ML (1,000 UNIT/ML) VIAL ONE (07:20)
[2022-12-24] MEDS ORDERED: NICARDIPINE 25MG INJ IV ONE (07:20)
[2022-12-24] MEDS ORDERED: NITROGLYCERIN 50MG VIAL ONE (07:20)
[2022-12-24] MEDS ORDERED: CLOPIDOGREL 300MG TAB ONE (10:12)
[2022-12-24] MEDS ORDERED: GLUCAGON 1MG KIT 1 MG ML IM PRN (11:00)
[2022-12-24] MEDS ORDERED: DEXTROSE 50%-WATER 50 ML DISP.SYRIN IV PRN (11:00)
== END 2022-12-24 15:25 | disposition home or self-care (01) ==
LOC: DAH 05:52
PROVIDERS: ATTEND Internal Medicine Cardiovascular Disease
DX: I70.238 Atherosclerosis of native arteries of right leg with ulceration of other part of lower leg (principal); L97.818 Non-pressure chronic ulcer of other part of right lower leg with other specified severity; E11.51 Type 2 diabetes mellitus with diabetic peripheral angiopathy without gangrene; M86.8X7 Other osteomyelitis, ankle and foot; I70.92 Chronic total occlusion of artery of the extremities; I45.10 Unspecified right bundle-branch block; I44.30 Unspecified atrioventricular block; I48.0 Paroxysmal atrial fibrillation; I49.1 Atrial premature depolarization; Z79.82 Long term (current) use of aspirin; Z79.899 Other long term (current) drug therapy; Z79.4 Long term (current) use of insulin; Z98.890 Other specified postprocedural states; Z90.49 Acquired absence of other specified parts of digestive tract; Z82.49 Family history of ischemic heart disease and other diseases of the circulatory system; Z83.3 Family history of diabetes mellitus; Z79.01 Long term (current) use of anticoagulants
CPT/HCPCS: 80048; 83880; 85025; 85610; 85730; 36415; 71045; 93005; 37229; 82948 ×2; 75710; C1887; C1894 ×2; C1769 ×4; C1724; C1725; J3010; J3490 ×3; J7030; J1644 ×2; J2250 ×2; Q9967; A4222; A4221; A4663; A4216; A4606; A4223 ×3; 37225; 75774; 99156; 99157

== ENCOUNTER 2023-01-25 19:53 | Inpatient (IN) | payer MEDICARE ==
[~2023-01-25] VITALS: Ht 162.6 cm; Wt 81.4 kg
[2023-01-25] MEDS ORDERED: ACETAMINOPHEN 325 MG TAB PO PRN (23:00)
[2023-01-25] MEDS ORDERED: MORPHINE 2 MG SYG IVP ONE (23:00)
[2023-01-26 01:32] VITALS: BP 126/47
[2023-01-26] MEDS ORDERED: METO-408 PO (03:12)
[2023-01-26] MEDS ORDERED: CALC667T6 PO (03:12)
[2023-01-26] MEDS ORDERED: CLOP75TA32 PO (03:12)
[2023-01-26] MEDS ORDERED: FOLI1TAB85 PO (03:12)
[2023-01-26] MEDS ORDERED: APIX2.5T PO (03:12)
[2023-01-26] MEDS ORDERED: BACL5TAB PO (03:12)
[2023-01-26] MEDS ORDERED: CHOL200074 PO (03:12)
[2023-01-26] MEDS ORDERED: MECO10005 PO (03:12)
[2023-01-26 04:00] VITALS: BP 121/53
[2023-01-26 08:00] VITALS: BP 141/62
[2023-01-26] MEDS: MORPHINE 2 MG SYG IVP PRN (08:33)
[2023-01-26 10:07] LABS: HEMATOCRIT 31.6 % (42-54); MEAN CORPUSCULAR HEMOGLOBIN 32.3 pg (27.0-33.0); RED BLOOD CELL COUNT(AUTO) 3.13 MIL/uL (4.50-6.20); RED CELL DISTRIBUTION WIDTH 14.4 % (11.0-15.5); WHITE BLOOD COUNT (AUTO) 7.2 K/uL (4.8-10.8)
[2023-01-26 10:15] LABS: CREATININE 4.9 mg/dL (0.5-1.5); MAGNESIUM 2.3 mg/dL (1.80-2.40); POTASSIUM 4.8 mmol/L (3.5-5.1)
[2023-01-26 10:29] LABS: INR 1.06 (0.85-1.15); PROTHROMBIN TIME 12.2 SEC (9.6-11.6)
[2023-01-26 10:30] LABS: PARTIAL THROMBOPLASTIN TIME 31.2 SEC (26.3-35.5)
[2023-01-26 11:54] VITALS: BP 126/48
[2023-01-26 16:00] VITALS: BP 140/63
[2023-01-26] MEDS: CALCIUM AC 667MG CAP PO SCH (18:38)
[2023-01-26 20:00] VITALS: BP 140/59
[2023-01-26] MEDS ORDERED: INSLAN SQ (20:22)
[2023-01-26] MEDS: BACLOFEN 10 MG TABLET PO PRN (20:25)
[2023-01-26] MEDS: APIXABAN 2.5 MG TABLET PO SCH (20:26)
[2023-01-27] VITALS (20 sets, daily range): BP systolic 95–157; BP diastolic 51–77
[2023-01-27] MEDS: INSULIN HUMULIN R 100 UNIT/ML 3ML SQ SCH ×4 (06:06→20:20)
[2023-01-27] MEDS: INSULIN GLARGINE 100 UNITS/ML 10 ML VIAL SQ SCH (06:44)
[2023-01-27] MEDS: CYANOCOBALAMIN (VITAMIN B-12) 1,000 MCG TABLET PO SCH (08:22)
[2023-01-27] MEDS: Vitamin B Complex/Vit C/Folic Acid PO SCH (08:22)
[2023-01-27] MEDS: APIXABAN 2.5 MG TABLET PO SCH ×2 (08:22→20:17)
[2023-01-27] MEDS: METOPROLOL SUCCINATE 25 MG TAB.SR.24H PO SCH (08:23)
[2023-01-27] MEDS: CLOPIDOGREL 75MG TAB PO SCH (08:26)
[2023-01-27] MEDS: Cholecalciferol (Vitamin D3) (Vitamin D3) 50 MCG PO SCH (08:30)
[2023-01-27] MEDS: CALCIUM AC 667MG CAP PO SCH ×2 (12:04→20:17)
[2023-01-27] MEDS: MORPHINE 2 MG SYG IVP PRN (15:05)
[2023-01-27] MEDS: BACLOFEN 10 MG TABLET PO PRN (20:17)
[2023-01-28] VITALS (23 sets, daily range): BP systolic 95–133; BP diastolic 37–58
[2023-01-28] MEDS: INSULIN GLARGINE 100 UNITS/ML 10 ML VIAL SQ SCH (03:15)
[2023-01-28 04:59] LABS: HEMATOCRIT 31.4 % (42-54); MEAN CORPUSCULAR HEMOGLOBIN 31.6 pg (27.0-33.0); MEAN CORPUSCULAR HGB CONC 31.5 g/dL (32.0-36.0); MEAN CORPUSCULAR VOLUME 100.3 fL (79-99); RED BLOOD CELL COUNT(AUTO) 3.13 MIL/uL (4.50-6.20); RED CELL DISTRIBUTION WIDTH 14.1 % (11.0-15.5); WHITE BLOOD COUNT (AUTO) 7.9 K/uL (4.8-10.8)
[2023-01-28 05:08] LABS: CREATININE 4.3 mg/dL (0.5-1.5); MAGNESIUM 2.1 mg/dL (1.80-2.40); POTASSIUM 4.4 mmol/L (3.5-5.1)
[2023-01-28] MEDS: INSULIN HUMULIN R 100 UNIT/ML 3ML SQ SCH ×4 (05:43→20:13)
[2023-01-28] MEDS: CYANOCOBALAMIN (VITAMIN B-12) 1,000 MCG TABLET PO SCH (09:00)
[2023-01-28] MEDS: Cholecalciferol (Vitamin D3) (Vitamin D3) 50 MCG PO SCH (09:00)
[2023-01-28] MEDS: APIXABAN 2.5 MG TABLET PO SCH ×2 (09:00→20:13)
[2023-01-28] MEDS: Vitamin B Complex/Vit C/Folic Acid PO SCH (09:00)
[2023-01-28] MEDS: METOPROLOL SUCCINATE 25 MG TAB.SR.24H PO SCH (09:23)
[2023-01-28] MEDS: CLOPIDOGREL 75MG TAB PO SCH (09:51)
[2023-01-28] MEDS: CALCIUM AC 667MG CAP PO SCH ×2 (11:30→16:47)
[2023-01-28 13:29] LABS: BASOPHILS % (AUTO) 0.4 % (0.0-5.0); EOSINOPHILS % (AUTO) 2.1 % (0.0-8.0); HEMATOCRIT 34.1 % (42-54); LYMPHOCYTES % (AUTO) 18.4 % (21.0-51.0); MEAN CORPUSCULAR HEMOGLOBIN 31.4 pg (27.0-33.0); MEAN CORPUSCULAR HGB CONC 31.4 g/dL (32.0-36.0); MONOCYTES % (AUTO) 6.9 % (3.0-13.0); NEUTROPHILS % (AUTO) 71.7 % (40.0-77.0); PLATELET COUNT (AUTO) 125 K/uL (130-400); RED BLOOD CELL COUNT(AUTO) 3.41 MIL/uL (4.50-6.20); RED CELL DISTRIBUTION WIDTH 14.3 % (11.0-15.5); WHITE BLOOD COUNT (AUTO) 8.2 K/uL (4.8-10.8)
[2023-01-28] MEDS ORDERED: BUPIVACAINE/PF 0.5% 30ML VIAL ONE (16:02)
[2023-01-28] MEDS ORDERED: LIDOCAINE HCL 1% 20 ML VIAL ONE (16:02)
[2023-01-28] MEDS ORDERED: MIDAZOLAM HCL 1 MG/ML 2ML VIAL ONE (16:16)
[2023-01-28] MEDS ORDERED: FENTANYL CITRATE PF 50 MCG/1 ML 2ML VIAL ONE (16:17)
[2023-01-28] MEDS: BACLOFEN 10 MG TABLET PO PRN (20:13)
[2023-01-29] VITALS (21 sets, daily range): BP systolic 99–151; BP diastolic 49–73
[2023-01-29] MEDS: INSULIN HUMULIN R 100 UNIT/ML 3ML SQ SCH ×4 (05:39→21:00)
[2023-01-29] MEDS: INSULIN GLARGINE 100 UNITS/ML 10 ML VIAL SQ SCH (06:25)
[2023-01-29] MEDS: Cholecalciferol (Vitamin D3) (Vitamin D3) 50 MCG PO SCH (09:00)
[2023-01-29] MEDS: CLOPIDOGREL 75MG TAB PO SCH (09:51)
[2023-01-29] MEDS: APIXABAN 2.5 MG TABLET PO SCH ×2 (09:51→21:32)
[2023-01-29] MEDS: Vitamin B Complex/Vit C/Folic Acid PO SCH (09:52)
[2023-01-29] MEDS: METOPROLOL SUCCINATE 25 MG TAB.SR.24H PO SCH (09:52)
[2023-01-29] MEDS: CYANOCOBALAMIN (VITAMIN B-12) 1,000 MCG TABLET PO SCH (09:52)
[2023-01-29] MEDS: CALCIUM AC 667MG CAP PO SCH ×2 (12:00→17:00)
[2023-01-29] MEDS: LACTULOSE 20 GM/30 ML UDCUP PO SCH ×2 (17:12→21:32)
[2023-01-29] MEDS: BACLOFEN 10 MG TABLET PO PRN (21:32)
[2023-01-30] MEDS: LACTULOSE 20 GM/30 ML UDCUP PO SCH ×4 (03:00→21:15)
[2023-01-30 05:06] VITALS: BP 122/58
[2023-01-30] MEDS: MORPHINE 2 MG SYG IVP PRN ×2 (05:49→22:46)
[2023-01-30] MEDS: INSULIN HUMULIN R 100 UNIT/ML 3ML SQ SCH ×4 (05:49→20:14)
[2023-01-30] MEDS: INSULIN GLARGINE 100 UNITS/ML 10 ML VIAL SQ SCH (05:49)
[2023-01-30 05:52] LABS: HEMATOCRIT 36.6 % (42-54); MEAN CORPUSCULAR HEMOGLOBIN 31.5 pg (27.0-33.0); MEAN CORPUSCULAR HGB CONC 31.7 g/dL (32.0-36.0); MEAN CORPUSCULAR VOLUME 99.5 fL (79-99); RED BLOOD CELL COUNT(AUTO) 3.68 MIL/uL (4.50-6.20); WHITE BLOOD COUNT (AUTO) 9.5 K/uL (4.8-10.8)
[2023-01-30 06:11] LABS: CREATININE 4.3 mg/dL (0.5-1.5); MAGNESIUM 2.2 mg/dL (1.80-2.40); POTASSIUM 4.1 mmol/L (3.5-5.1)
[2023-01-30 08:00] VITALS: BP 165/54
[2023-01-30] MEDS: Vitamin B Complex/Vit C/Folic Acid PO SCH (09:00)
[2023-01-30] MEDS: Cholecalciferol (Vitamin D3) (Vitamin D3) 50 MCG PO SCH (09:00)
[2023-01-30] MEDS: CYANOCOBALAMIN (VITAMIN B-12) 1,000 MCG TABLET PO SCH ×2 (09:00→12:00)
[2023-01-30] MEDS: CLOPIDOGREL 75MG TAB PO SCH ×2 (09:00→12:01)
[2023-01-30] MEDS: METOPROLOL SUCCINATE 25 MG TAB.SR.24H PO SCH ×2 (09:00→12:00)
[2023-01-30] MEDS: APIXABAN 2.5 MG TABLET PO SCH ×2 (09:00→12:01)
[2023-01-30 11:57] VITALS: BP 157/70
[2023-01-30] MEDS: CALCIUM AC 667MG CAP PO SCH ×2 (12:01→17:00)
[2023-01-30 15:54] VITALS: BP 122/45
[2023-01-30 19:00] VITALS: BP 133/65
[2023-01-31] VITALS (7 sets, daily range): BP systolic 107–142; BP diastolic 42–75
[2023-01-31] MEDS: LACTULOSE 20 GM/30 ML UDCUP PO SCH ×4 (03:00→20:49)
[2023-01-31] MEDS: INSULIN GLARGINE 100 UNITS/ML 10 ML VIAL SQ SCH (05:53)
[2023-01-31] MEDS: INSULIN HUMULIN R 100 UNIT/ML 3ML SQ SCH ×4 (05:53→20:50)
[2023-01-31] MEDS: CLOPIDOGREL 75MG TAB PO SCH (08:27)
[2023-01-31] MEDS: CYANOCOBALAMIN (VITAMIN B-12) 1,000 MCG TABLET PO SCH (08:27)
[2023-01-31] MEDS: APIXABAN 2.5 MG TABLET PO SCH ×2 (08:27→20:49)
[2023-01-31] MEDS: Vitamin B Complex/Vit C/Folic Acid PO SCH (08:27)
[2023-01-31] MEDS: METOPROLOL SUCCINATE 25 MG TAB.SR.24H PO SCH (08:27)
[2023-01-31] MEDS: Cholecalciferol (Vitamin D3) (Vitamin D3) 50 MCG PO SCH (08:28)
[2023-01-31] MEDS: CALCIUM AC 667MG CAP PO SCH ×2 (12:00→17:29)
[2023-01-31] MEDS: BACLOFEN 10 MG TABLET PO PRN (20:49)
[2023-02-01] VITALS (20 sets, daily range): BP systolic 93–139; BP diastolic 45–64
[2023-02-01] MEDS: LACTULOSE 20 GM/30 ML UDCUP PO SCH ×4 (04:19→21:00)
[2023-02-01] MEDS: INSULIN HUMULIN R 100 UNIT/ML 3ML SQ SCH ×4 (05:50→21:00)
[2023-02-01] MEDS: INSULIN GLARGINE 100 UNITS/ML 10 ML VIAL SQ SCH (07:16)
[2023-02-01] MEDS: METOPROLOL SUCCINATE 25 MG TAB.SR.24H PO SCH (08:34)
[2023-02-01] MEDS: Vitamin B Complex/Vit C/Folic Acid PO SCH (08:34)
[2023-02-01] MEDS: CYANOCOBALAMIN (VITAMIN B-12) 1,000 MCG TABLET PO SCH (08:34)
[2023-02-01] MEDS: APIXABAN 2.5 MG TABLET PO SCH ×2 (08:34→21:00)
[2023-02-01] MEDS: CLOPIDOGREL 75MG TAB PO SCH (08:35)
[2023-02-01] MEDS: Cholecalciferol (Vitamin D3) (Vitamin D3) 50 MCG PO SCH (08:55)
[2023-02-01] MEDS: CALCIUM AC 667MG CAP PO SCH ×2 (12:07→17:00)
[2023-02-02] MEDS: LACTULOSE 20 GM/30 ML UDCUP PO SCH ×4 (03:00→21:00)
[2023-02-02 04:15] VITALS: BP 108/57
[2023-02-02] MEDS: INSULIN HUMULIN R 100 UNIT/ML 3ML SQ SCH ×4 (06:37→20:57)
[2023-02-02] MEDS: INSULIN GLARGINE 100 UNITS/ML 10 ML VIAL SQ SCH (06:46)
[2023-02-02 08:00] VITALS: BP 123/80
[2023-02-02] MEDS: Vitamin B Complex/Vit C/Folic Acid PO SCH (08:50)
[2023-02-02] MEDS: METOPROLOL SUCCINATE 25 MG TAB.SR.24H PO SCH (08:50)
[2023-02-02] MEDS: APIXABAN 2.5 MG TABLET PO SCH ×2 (08:50→20:57)
[2023-02-02] MEDS: CYANOCOBALAMIN (VITAMIN B-12) 1,000 MCG TABLET PO SCH (08:50)
[2023-02-02] MEDS: CLOPIDOGREL 75MG TAB PO SCH (08:51)
[2023-02-02] MEDS: Cholecalciferol (Vitamin D3) (Vitamin D3) 50 MCG PO SCH (08:51)
[2023-02-02 12:00] VITALS: BP 120/53
[2023-02-02] MEDS: CALCIUM AC 667MG CAP PO SCH ×2 (12:24→16:06)
[2023-02-02 16:00] VITALS: BP 122/51
[2023-02-02 19:52] VITALS: BP 115/60
[2023-02-03] VITALS (23 sets, daily range): BP systolic 83–124; BP diastolic 36–76
[2023-02-03] MEDS: LACTULOSE 20 GM/30 ML UDCUP PO SCH ×4 (03:00→21:35)
[2023-02-03 05:45] LABS: BASOPHILS % (AUTO) 0.4 % (0.0-5.0); EOSINOPHILS % (AUTO) 1.4 % (0.0-8.0); HEMATOCRIT 33.7 % (42-54); LYMPHOCYTES % (AUTO) 20.1 % (21.0-51.0); MEAN CORPUSCULAR HEMOGLOBIN 31.5 pg (27.0-33.0); MEAN CORPUSCULAR VOLUME 98.3 fL (79-99); MONOCYTES % (AUTO) 10.7 % (3.0-13.0); NEUTROPHILS % (AUTO) 66.9 % (40.0-77.0); PLATELET COUNT (AUTO) 174 K/uL (130-400); RED BLOOD CELL COUNT(AUTO) 3.43 MIL/uL (4.50-6.20); RED CELL DISTRIBUTION WIDTH 14.6 % (11.0-15.5); WHITE BLOOD COUNT (AUTO) 11.5 K/uL (4.8-10.8)
[2023-02-03 05:50] LABS: MAGNESIUM 2.4 mg/dL (1.80-2.40); POTASSIUM 4.2 mmol/L (3.5-5.1)
[2023-02-03] MEDS: INSULIN HUMULIN R 100 UNIT/ML 3ML SQ SCH ×4 (06:30→21:34)
[2023-02-03] MEDS: INSULIN GLARGINE 100 UNITS/ML 10 ML VIAL SQ SCH (06:46)
[2023-02-03] MEDS: Cholecalciferol (Vitamin D3) (Vitamin D3) 50 MCG PO SCH (09:00)
[2023-02-03] MEDS: Vitamin B Complex/Vit C/Folic Acid PO SCH ×2 (09:00→15:30)
[2023-02-03] MEDS: CLOPIDOGREL 75MG TAB PO SCH (09:00)
[2023-02-03] MEDS: APIXABAN 2.5 MG TABLET PO SCH ×2 (09:00→21:35)
[2023-02-03] MEDS: CYANOCOBALAMIN (VITAMIN B-12) 1,000 MCG TABLET PO SCH ×2 (09:00→15:30)
[2023-02-03] MEDS: METOPROLOL SUCCINATE 25 MG TAB.SR.24H PO SCH ×2 (09:00→15:30)
[2023-02-03] MEDS: CALCIUM AC 667MG CAP PO SCH ×2 (12:00→17:51)
[2023-02-03 14:15] LABS: CREATININE 3.4 mg/dL (0.5-1.5); POTASSIUM 3.1 mmol/L (3.5-5.1)
[2023-02-03] MEDS: BACLOFEN 10 MG TABLET PO PRN (23:52)
[2023-02-04] MEDS: LACTULOSE 20 GM/30 ML UDCUP PO SCH ×4 (03:00→21:05)
[2023-02-04 04:00] VITALS: BP 121/57
[2023-02-04] MEDS: INSULIN GLARGINE 100 UNITS/ML 10 ML VIAL SQ SCH (05:55)
[2023-02-04] MEDS: INSULIN HUMULIN R 100 UNIT/ML 3ML SQ SCH ×4 (05:55→21:13)
[2023-02-04 08:00] VITALS: BP 107/51
[2023-02-04] MEDS: Cholecalciferol (Vitamin D3) (Vitamin D3) 50 MCG PO SCH (09:00)
[2023-02-04] MEDS: CYANOCOBALAMIN (VITAMIN B-12) 1,000 MCG TABLET PO SCH (10:17)
[2023-02-04] MEDS: APIXABAN 2.5 MG TABLET PO SCH ×2 (10:18→21:05)
[2023-02-04] MEDS: METOPROLOL SUCCINATE 25 MG TAB.SR.24H PO SCH (10:18)
[2023-02-04] MEDS: CLOPIDOGREL 75MG TAB PO SCH (10:18)
[2023-02-04] MEDS: BACLOFEN 10 MG TABLET PO PRN (10:25)
[2023-02-04 11:29] LABS: HEMATOCRIT 34.7 % (42-54); MEAN CORPUSCULAR HEMOGLOBIN 31.3 pg (27.0-33.0); MEAN CORPUSCULAR HGB CONC 31.7 g/dL (32.0-36.0); MEAN CORPUSCULAR VOLUME 98.6 fL (79-99); RED BLOOD CELL COUNT(AUTO) 3.52 MIL/uL (4.50-6.20); RED CELL DISTRIBUTION WIDTH 14.6 % (11.0-15.5); WHITE BLOOD COUNT (AUTO) 10.7 K/uL (4.8-10.8)
[2023-02-04 11:58] LABS: CREATININE 5.4 mg/dL (0.5-1.5); MAGNESIUM 2.1 mg/dL (1.80-2.40); PHOSPHORUS 5.2 mg/dL (2.5-4.9); POTASSIUM 3.6 mmol/L (3.5-5.1)
[2023-02-04 12:00] VITALS: BP 124/57
[2023-02-04] MEDS ORDERED: VANCOMYCIN PROTOCOL PER PHARMACY IV SCH (13:30)
[2023-02-04] MEDS: CALCIUM AC 667MG CAP PO SCH ×2 (13:32→17:21)
[2023-02-04 16:00] VITALS: BP 153/56
[2023-02-04 19:23] VITALS: BP 141/59
[2023-02-04] MEDS: ZOSYN 3.375GM +NS 50ML IVPB SCH (21:06)
[2023-02-04 23:39] VITALS: BP 134/54
[2023-02-05] VITALS (23 sets, daily range): BP systolic 72–151; BP diastolic 40–66
[2023-02-05] MEDS: BACLOFEN 10 MG TABLET PO PRN ×2 (00:07→22:24)
[2023-02-05] MEDS: LACTULOSE 20 GM/30 ML UDCUP PO SCH ×4 (02:11→21:12)
[2023-02-05] MEDS: INSULIN HUMULIN R 100 UNIT/ML 3ML SQ SCH ×4 (05:51→21:00)
[2023-02-05] MEDS: INSULIN GLARGINE 100 UNITS/ML 10 ML VIAL SQ SCH (06:04)
[2023-02-05] MEDS: APIXABAN 2.5 MG TABLET PO SCH ×2 (08:40→21:12)
[2023-02-05] MEDS: ZOSYN 3.375GM +NS 50ML IVPB SCH ×2 (08:40→21:12)
[2023-02-05] MEDS: CLOPIDOGREL 75MG TAB PO SCH (08:41)
[2023-02-05] MEDS: CYANOCOBALAMIN (VITAMIN B-12) 1,000 MCG TABLET PO SCH (08:41)
[2023-02-05] MEDS: Cholecalciferol (Vitamin D3) (Vitamin D3) 50 MCG PO SCH (08:41)
[2023-02-05] MEDS: Vitamin B Complex/Vit C/Folic Acid PO SCH (08:47)
[2023-02-05] MEDS: CALCIUM AC 667MG CAP PO SCH ×2 (13:19→17:08)
[2023-02-05] MEDS: ACETAMINOPHEN 325 MG TAB PO PRN (15:36)
[2023-02-05] MEDS: VANCOMYCIN 750MG VIAL IVPB SCH (18:17)
[2023-02-06] MEDS: LACTULOSE 20 GM/30 ML UDCUP PO SCH ×4 (03:26→19:53)
[2023-02-06 04:08] VITALS: BP 128/61
[2023-02-06 05:07] LABS: HEMATOCRIT 33.5 % (42-54); MEAN CORPUSCULAR HEMOGLOBIN 31.4 pg (27.0-33.0); MEAN CORPUSCULAR HGB CONC 32.2 g/dL (32.0-36.0); MEAN CORPUSCULAR VOLUME 97.4 fL (79-99); RED BLOOD CELL COUNT(AUTO) 3.44 MIL/uL (4.50-6.20); RED CELL DISTRIBUTION WIDTH 14.2 % (11.0-15.5); WHITE BLOOD COUNT (AUTO) 11.1 K/uL (4.8-10.8)
[2023-02-06 05:09] LABS: CREATININE 4.6 mg/dL (0.5-1.5); MAGNESIUM 2.3 mg/dL (1.80-2.40); POTASSIUM 3.8 mmol/L (3.5-5.1)
[2023-02-06] MEDS: INSULIN HUMULIN R 100 UNIT/ML 3ML SQ SCH ×4 (06:47→20:57)
[2023-02-06] MEDS: INSULIN GLARGINE 100 UNITS/ML 10 ML VIAL SQ SCH (06:53)
[2023-02-06 08:00] VITALS: BP 123/53
[2023-02-06] MEDS: METOPROLOL SUCCINATE 25 MG TAB.SR.24H PO SCH (08:54)
[2023-02-06] MEDS: ZOSYN 3.375GM +NS 50ML IVPB SCH ×2 (08:54→19:53)
[2023-02-06] MEDS: APIXABAN 2.5 MG TABLET PO SCH ×2 (08:54→19:54)
[2023-02-06] MEDS: CYANOCOBALAMIN (VITAMIN B-12) 1,000 MCG TABLET PO SCH (08:54)
[2023-02-06] MEDS: CLOPIDOGREL 75MG TAB PO SCH (08:54)
[2023-02-06] MEDS: Vitamin B Complex/Vit C/Folic Acid PO SCH (08:54)
[2023-02-06] MEDS: Cholecalciferol (Vitamin D3) (Vitamin D3) 50 MCG PO SCH (09:00)
[2023-02-06 12:00] VITALS: BP 136/48
[2023-02-06] MEDS: CALCIUM AC 667MG CAP PO SCH ×2 (12:30→16:46)
[2023-02-06 16:00] VITALS: BP 30/58
[2023-02-06] MEDS: ACETAMINOPHEN 325 MG TAB PO PRN (16:57)
[2023-02-06 19:21] VITALS: BP 113/54
[2023-02-06 23:08] VITALS: BP 108/56
[2023-02-06] MEDS: BACLOFEN 10 MG TABLET PO PRN (23:57)
[2023-02-07] MEDS: LACTULOSE 20 GM/30 ML UDCUP PO SCH ×4 (03:00→20:11)
[2023-02-07 04:04] VITALS: BP 111/51
[2023-02-07] MEDS: INSULIN HUMULIN R 100 UNIT/ML 3ML SQ SCH ×4 (06:28→20:08)
[2023-02-07] MEDS: INSULIN GLARGINE 100 UNITS/ML 10 ML VIAL SQ SCH (06:44)
[2023-02-07 08:00] VITALS: BP 119/47
[2023-02-07] MEDS: ZOSYN 3.375GM +NS 50ML IVPB SCH ×2 (08:32→20:10)
[2023-02-07] MEDS: CLOPIDOGREL 75MG TAB PO SCH (08:32)
[2023-02-07] MEDS: METOPROLOL SUCCINATE 25 MG TAB.SR.24H PO SCH (08:32)
[2023-02-07] MEDS: Vitamin B Complex/Vit C/Folic Acid PO SCH (08:32)
[2023-02-07] MEDS: CYANOCOBALAMIN (VITAMIN B-12) 1,000 MCG TABLET PO SCH (08:32)
[2023-02-07] MEDS: APIXABAN 2.5 MG TABLET PO SCH ×2 (08:32→20:11)
[2023-02-07] MEDS: Cholecalciferol (Vitamin D3) (Vitamin D3) 50 MCG PO SCH (08:40)
[2023-02-07 11:34] VITALS: BP 124/60
[2023-02-07] MEDS: CALCIUM AC 667MG CAP PO SCH ×2 (12:00→16:56)
[2023-02-07] MEDS: ACETAMINOPHEN 325 MG TAB PO PRN (13:04)
[2023-02-07 16:00] VITALS: BP 111/60
[2023-02-07] MEDS: BACLOFEN 10 MG TABLET PO PRN (20:13)
[2023-02-07 20:31] VITALS: BP 144/66
[2023-02-07 23:51] VITALS: BP 139/69
[2023-02-08] VITALS (20 sets, daily range): BP systolic 78–161; BP diastolic 50–72
[2023-02-08] MEDS: LACTULOSE 20 GM/30 ML UDCUP PO SCH ×4 (03:00→19:48)
[2023-02-08] MEDS: INSULIN GLARGINE 100 UNITS/ML 10 ML VIAL SQ SCH (06:27)
[2023-02-08] MEDS: INSULIN HUMULIN R 100 UNIT/ML 3ML SQ SCH ×4 (06:28→19:43)
[2023-02-08 06:55] LABS: HEMATOCRIT 32.1 % (42-54); MEAN CORPUSCULAR HEMOGLOBIN 31.3 pg (27.0-33.0); MEAN CORPUSCULAR HGB CONC 31.8 g/dL (32.0-36.0); MEAN CORPUSCULAR VOLUME 98.5 fL (79-99); RED BLOOD CELL COUNT(AUTO) 3.26 MIL/uL (4.50-6.20); RED CELL DISTRIBUTION WIDTH 14.4 % (11.0-15.5); WHITE BLOOD COUNT (AUTO) 11.8 K/uL (4.8-10.8)
[2023-02-08 07:07] LABS: MAGNESIUM 2.5 mg/dL (1.80-2.40); POTASSIUM 4.3 mmol/L (3.5-5.1)
[2023-02-08] MEDS: Cholecalciferol (Vitamin D3) (Vitamin D3) 50 MCG PO SCH (09:00)
[2023-02-08] MEDS: CLOPIDOGREL 75MG TAB PO SCH (09:04)
[2023-02-08] MEDS: CYANOCOBALAMIN (VITAMIN B-12) 1,000 MCG TABLET PO SCH (09:04)
[2023-02-08] MEDS: Vitamin B Complex/Vit C/Folic Acid PO SCH (09:04)
[2023-02-08] MEDS: ZOSYN 3.375GM +NS 50ML IVPB SCH (09:04)
[2023-02-08] MEDS: METOPROLOL SUCCINATE 25 MG TAB.SR.24H PO SCH (09:04)
[2023-02-08] MEDS: APIXABAN 2.5 MG TABLET PO SCH ×2 (09:05→19:43)
[2023-02-08] MEDS: CALCIUM AC 667MG CAP PO SCH ×2 (11:47→15:41)
[2023-02-08] MEDS: VANCOMYCIN 750MG VIAL IVPB SCH (15:04)
== END 2023-02-08 20:11 | DRG 987 ==
LOC: EDH 19:53 → EDHIP 22:49 → 4AH 01-26 01:13 → 3BH 01-29 20:02
PROVIDERS: ADMIT Internal Medicine Infectious Disease; ATTEND Internal Medicine Infectious Disease
PROC: 5A1D70Z Performance of Urinary Filtration, Intermittent, Less than 6 Hours Per Day (ICD-10-PCS; 2023-01-27)
PROC: 0QBN0ZZ Excision of Right Metatarsal, Open Approach (ICD-10-PCS; principal; 2023-01-28 16:14)
PROC: 5A1D70Z Performance of Urinary Filtration, Intermittent, Less than 6 Hours Per Day (ICD-10-PCS; 2023-01-29)
PROC: 5A1D70Z Performance of Urinary Filtration, Intermittent, Less than 6 Hours Per Day (ICD-10-PCS; 2023-02-01)
PROC: 5A1D70Z Performance of Urinary Filtration, Intermittent, Less than 6 Hours Per Day (ICD-10-PCS; 2023-02-03)
PROC: 5A1D70Z Performance of Urinary Filtration, Intermittent, Less than 6 Hours Per Day (ICD-10-PCS; 2023-02-05)
PROC: 5A1D70Z Performance of Urinary Filtration, Intermittent, Less than 6 Hours Per Day (ICD-10-PCS; 2023-02-08)
DX: E11.52 Type 2 diabetes mellitus with diabetic peripheral angiopathy with gangrene (principal); N18.6 End stage renal disease; I12.0 Hypertensive chronic kidney disease with stage 5 chronic kidney disease or end stage renal disease; M86.8X7 Other osteomyelitis, ankle and foot; E11.69 Type 2 diabetes mellitus with other specified complication; M48.061 Spinal stenosis, lumbar region without neurogenic claudication; E11.22 Type 2 diabetes mellitus with diabetic chronic kidney disease; M54.16 Radiculopathy, lumbar region; Z20.822 Contact with and (suspected) exposure to COVID-19; E78.00 Pure hypercholesterolemia, unspecified; E83.39 Other disorders of phosphorus metabolism; H54.8 Legal blindness, as defined in USA; I48.91 Unspecified atrial fibrillation; D63.1 Anemia in chronic kidney disease; E11.621 Type 2 diabetes mellitus with foot ulcer; M16.12 Unilateral primary osteoarthritis, left hip; L97.519 Non-pressure chronic ulcer of other part of right foot with unspecified severity; G89.29 Other chronic pain; Z79.01 Long term (current) use of anticoagulants; Z79.4 Long term (current) use of insulin; Z74.01 Bed confinement status; Z99.2 Dependence on renal dialysis; Z89.411 Acquired absence of right great toe; Z79.02 Long term (current) use of antithrombotics/antiplatelets; Z83.3 Family history of diabetes mellitus; Z90.49 Acquired absence of other specified parts of digestive tract
CPT/HCPCS: 36415; 70551; 72131; 72148; 72190; 73630; 73718; 80048; 82140; 82948; 83735; 84100; 85025; 85027; 85610; 85651; 85730; 86140; 87040; 87070; 87076; 87205; 87635; 90935; 93925; G0378; J1815; J2250; J2270; J2543; J3010; J3490